=== PATIENT | female | born 1980 | race Caucasian/White ===

== ENCOUNTER 2023-04-28 04:48 | Inpatient (IN) | payer OTHER ==
[2023-04-28] MEDS ORDERED: predniSONE 20 MG TAB ONE (05:04)
[2023-04-28] MEDS ORDERED: clonazePAM 0.5 MG TAB ONE (05:04)
[2023-04-28] MEDS ORDERED: Albuterol 2.5 MG (3 mL) NEB ONE (05:41)
[2023-04-28 06:23] LABS: #Eosinphils 0.1 10x3/uL (0.0-0.5); #Monocytes 0.6 10x3/uL (0.0-1.1); #Neutrophils 9.6 10x3/uL (1.5-8.4); %Basophils 0.4 % (0.0-2.0); %Eosinophils 1.1 % (0.0-6.0); %Lymphocytes 6.5 % (18.0-47.0); %Monocytes 5.6 % (0.0-10.0); Hematocrit 34.4 % (34.9-44.5); Hemoglobin 11.8 g/dL (12.0-15.5); Mean Corpuscular HGB CONC 34.3 g/dL (32.0-36.0); Mean Corpuscular Hemoglobin 29.9 pg (27.0-33.0); Mean Corpuscular Volume 87.3 fl (81.6-98.3); Mean Platelet Volume 10.3 fl (7.4-10.4); Platelet Count 309 10x3/uL (150-450); RBC Distribution Width 13.8 % (11.5-14.5); Red Blood Cell (RBC) Count 3.94 10x6/uL (3.90-5.03); White Blood Cell (WBC) Count 11.1 10x3/uL (3.5-10.5)
[2023-04-28] MEDS ORDERED: Acetaminophen 500 MG TAB ONE (06:25)
[2023-04-28 06:33] LABS: ALT (SGPT) 36 U/L (8-55); AST (SGOT) 34 U/L (5-34); Alkaline Phosphatase 60 U/L (40-110); Anion Gap 16 mmol/L (10-20); BUN (Urea Nitrogen) 14 mg/dL (7.0-18.7); Bilirubin, Total 1.3 mg/dL (0.2-1.2); Calc. Creatinine Clearance 0 mL/min (70-130); Calcium 8.1 mg/dL (7.8-10.44); Carbon Dioxide 19 mmol/L (22-29); Chloride 103 mmol/L (98-107); Estimated GFR 94; Glucose 163 mg/dL (70-105); Potassium 3.5 mmol/L (3.5-5.1); Sodium 134 mmol/L (136-145)
[2023-04-28] MEDS ORDERED: cefTRIAXone (ROCEPHIN) 1 GM VIAL ONE (07:35)
[2023-04-28] MEDS ORDERED: Azithromycin 500 MG VIAL ONE (07:35)
[2023-04-28] MEDS ORDERED: Magnesium 2 GM/50 ML BAG (IN WATER) ONE (07:35)
[2023-04-28 07:46] LABS: BHCG - Serum Negative (NEGATIVE); Pregs Control Background? CLEAR/WHITE (CLR/WHITE); Pregs Control Bar Appear? YES (CONTROL BAR)
[2023-04-28 07:49] LABS: Analyzer IN Cardio CS ER; Calcium, Ionized (venous) 1.03 mmol/L (1.16-1.32); Chloride (VBG) 101 mmol/L (98-106); Hematocrit-VBG 38 % (36.0-47.0); Hemoglobin (Hb) 12.9 g/dL (11.7-15.5); Potassium (VBG) 3.26 mmol/L (3.70-5.30); Puncture Site Other Site; Sodium 135 mmol/L (133-146); pH (venous) 7.451 (7.32-7.43)
[2023-04-28] MEDS ORDERED: Iopamidol 370 76% 100 ML VIAL ONE (07:49)
[2023-04-28 08:05] LABS: Troponin I 0.013 ng/mL (< 0.028)
[2023-04-28 08:52] LABS: Influenza A by NAA Not Detected (NotDetected); Influenza B by NAA Not Detected (NotDetected); SARS-CoV-2 NAA Rapid Test Not Detected (NotDetected)
[2023-04-28] MEDS ORDERED: Furosemide 40 MG (4 mL) VIAL ONE (09:23)
[2023-04-28 10:51] LABS: Troponin I 0.018 ng/mL (< 0.028)
[2023-04-28] MEDS ORDERED: Acetaminophen 325 MG TAB PO PRN (12:05)
[2023-04-28] MEDS ORDERED: Senokot S 8.6-50 MG TAB PO PRN (12:05)
[2023-04-28] MEDS ORDERED: Acetaminophen 650 MG Suppository PR PRN (12:05)
[2023-04-28] MEDS ORDERED: Calcium Carbonate 500 MG ChewTAB PO PRN (12:05)
[2023-04-28] MEDS ORDERED: Prochlorperazine Edisylate 10 MG in Sodium Chloride 0.9% 50 ML IVPB PRN (12:10)
[2023-04-28] MEDS ORDERED: Nicotine 14 MG PATCH TD PRN (12:13)
[2023-04-28] MEDS ORDERED: clonazePAM 1 MG TAB PO PRN (12:15)
[2023-04-28] MEDS ORDERED: Ventolin HFA Inhaler 60 PUFF INHALER INH PRN (12:18)
[2023-04-28] MEDS ORDERED: Electrolyte Replacement Protocol 1 EACH FS SCH (12:30)
[2023-04-28] MEDS: Ipratropium/Albuterol 3 ML NEB NEB SCH (14:09)
[2023-04-28 14:12] LABS: Troponin I Less than 0.010 ng/mL (< 0.028)
[2023-04-28] MEDS: Potassium Chloride 20 MEQ TAB PO SCH (14:36)
[2023-04-28] MEDS ORDERED: Potassium Chloride 20 MEQ TAB ONE (14:37)
[2023-04-28 14:56] LABS: Legionella Urinary Ag Negative (Negative); Strep pneumo Urine Ag NEGATIVE (NEGATIVE)
[2023-04-28 15:14] VITALS: BMI 30.9
[2023-04-28] MEDS: Benzonatate 100 MG CAP PO PRN (15:32)
[2023-04-28] MEDS: methylPREDNISolone Sod Succ 40 MG VIAL IVP SCH (21:40)
[2023-04-28] MEDS: Venlafaxine XR 37.5 MG CAP PO SCH (21:40)
[2023-04-28] MEDS: Famotidine 20 MG TAB PO SCH (21:40)
[2023-04-29 05:50] LABS: #Monocytes 0.9 10x3/uL (0.0-1.1); #Neutrophils 8.8 10x3/uL (1.5-8.4); %Basophils 0.1 % (0.0-2.0); %Monocytes 8.6 % (0.0-10.0); %Neutrophils 85.9 % (40.0-75.0); Hematocrit 35.4 % (34.9-44.5); Hemoglobin 11.9 g/dL (12.0-15.5); Mean Corpuscular HGB CONC 33.6 g/dL (32.0-36.0); Mean Corpuscular Hemoglobin 29.1 pg (27.0-33.0); Mean Corpuscular Volume 86.6 fl (81.6-98.3); Mean Platelet Volume 9.8 fl (7.4-10.4); Platelet Count 338 10x3/uL (150-450); RBC Distribution Width 13.8 % (11.5-14.5); Red Blood Cell (RBC) Count 4.09 10x6/uL (3.90-5.03); White Blood Cell (WBC) Count 10.3 10x3/uL (3.5-10.5)
[2023-04-29 06:05] LABS: ALT (SGPT) 36 U/L (8-55); AST (SGOT) 32 U/L (5-34); Albumin 3.9 g/dL (3.5-5.0); Alkaline Phosphatase 52 U/L (40-110); Anion Gap 14 mmol/L (10-20); BUN (Urea Nitrogen) 16 mg/dL (7.0-18.7); Bilirubin, Total 0.8 mg/dL (0.2-1.2); Calc. Creatinine Clearance 121 mL/min (70-130); Calcium 8.5 mg/dL (7.8-10.44); Carbon Dioxide 22 mmol/L (22-29); Chloride 106 mmol/L (98-107); Estimated GFR 98; Globulin 3.1 g/dL (2.4-3.5); Glucose 151 mg/dL (70-105); Magnesium 2.5 mg/dL (1.6-2.6); Sodium 137 mmol/L (136-145)
[2023-04-29] MEDS: cefTRIAXone\\ROCEPHIN 1 GM in Sodium Chloride 0.9% 100 ML IVPB SCH (09:29)
[2023-04-29] MEDS: Azithromycin 500 MG in Sodium Chloride 0.9% 250 ML 250 ML IVPB SCH (09:30)
[2023-04-29] MEDS: Enoxaparin 40 MG (0.4 mL) SYRINGE SC SCH (09:32)
[2023-04-29] MEDS: guaiFENesin/Codeine Phosphate 100 mg/10 mg 5 ml UD Cup PO PRN (19:00)
[2023-04-29] MEDS: clonazePAM 1 MG TAB PO PRN (21:22)
[2023-04-29] MEDS: Mometasone/Formoterol 60 PUFF AER INH SCH (22:21)
[2023-04-30] MEDS: Mometasone/Formoterol 60 PUFF AER INH SCH (07:00)
[2023-05-01 04:59] LABS: #Monocytes 0.5 10x3/uL (0.0-1.1); #Neutrophils 8.8 10x3/uL (1.5-8.4); %Basophils 0.2 % (0.0-2.0); %Lymphocytes 8.1 % (18.0-47.0); %Monocytes 4.9 % (0.0-10.0); Hematocrit 36.2 % (34.9-44.5); Hemoglobin 12.1 g/dL (12.0-15.5); Mean Corpuscular HGB CONC 33.4 g/dL (32.0-36.0); Mean Corpuscular Hemoglobin 29.8 pg (27.0-33.0); Mean Corpuscular Volume 89.2 fl (81.6-98.3); Platelet Count 385 10x3/uL (150-450); RBC Distribution Width 13.9 % (11.5-14.5); Red Blood Cell (RBC) Count 4.06 10x6/uL (3.90-5.03); White Blood Cell (WBC) Count 10.2 10x3/uL (3.5-10.5)
[2023-05-01 05:08] LABS: Anion Gap 13 mmol/L (10-20); BUN (Urea Nitrogen) 21 mg/dL (7.0-18.7); Calc. Creatinine Clearance 125 mL/min (70-130); Calcium 8.5 mg/dL (7.8-10.44); Carbon Dioxide 21 mmol/L (22-29); Chloride 104 mmol/L (98-107); Estimated GFR 101; Glucose 172 mg/dL (70-105); Potassium 4.4 mmol/L (3.5-5.1); Sodium 134 mmol/L (136-145)
[2023-05-02 12:02] VITALS: BP 128/82; TEMP 98
== END 2023-05-02 14:14 | disposition home or self-care (01) | DRG 193 ==
LOC: CSHERS 04:48 → CSHERHOLD 09:27 → CSHTELE 14:53 → OBSVTOIN 04-29 22:00
PROVIDERS: ADMIT Family Medicine; ATTEND Hospitalist
DX: J18.9 Pneumonia, unspecified organism (principal); J96.01 Acute respiratory failure with hypoxia; J44.0 Chronic obstructive pulmonary disease with (acute) lower respiratory infection; J44.1 Chronic obstructive pulmonary disease with (acute) exacerbation; J45.901 Unspecified asthma with (acute) exacerbation; F43.10 Post-traumatic stress disorder, unspecified; F32.A Depression, unspecified; F17.210 Nicotine dependence, cigarettes, uncomplicated; F39 Unspecified mood [affective] disorder; I35.0 Nonrheumatic aortic (valve) stenosis; F42.9 Obsessive-compulsive disorder, unspecified; Z98.51 Tubal ligation status
CPT/HCPCS: 36415; 71045; 71275; 80048; 80053; 82805; 83605; 83735; 83880; 84484; 84703; 85025; 87040; 87449; 87899; 93005; 94640; 94644; 94664; 94760; 96365; 96367; 96372; 96375; 96376; G0378; J0456; J0696; J1650; J1940; J2920; J3475; J3490; J7050; J7512; J7611; J7620